=== PATIENT | male | born 1955 | race Caucasian/White ===

== ENCOUNTER 2021-02-02 08:33 | Inpatient (IN) | payer OTHER ==
[2021-02-02 09:07] LABS: Absolute Lymphocytes (CBC) 4.7 K/uL (0.7-4.9); Basophils % 1.2 % (0-1.3); Lymphocytes % 62.9 % (15.3-44.8); MPV 8.4 fL (7.6-11.3); RBC Red Blood Cell Count 3.91 M/uL (4.33-5.43)
[2021-02-02 09:10] LABS: Protime INR 1.08
[2021-02-02] MEDS ORDERED: EPINEPHrine 4 MG in NA CHLORIDE 0.9% 250 ML IV PRN (09:22)
[2021-02-02 09:29] LABS: Albumin 3.2 g/dL (3.4-5.0); Bilirubin Direct 0.1 mg/dL (0-0.2); Bilirubin Total 0.3 mg/dL (0.2-1.0); Magnesium 2.8 mg/dL (1.8-2.4); Potassium 4.3 mmol/L (3.5-5.1); Troponin (Emerg Dept Use Only) 0.45 ng/mL (0.0-0.045)
[2021-02-02 09:45] LABS: Blood Morphology Comment NOTED (NOT SEEN); Platelet Estimate ADEQ; Polychromasia SLIGHT
[2021-02-02] MEDS ORDERED: DOPAMINE/D5W 400 MG/250 ML BAG IV ONE ×5 (09:49→23:07)
[2021-02-02] MEDS ORDERED: NA CHLORIDE 0.9% 2,000 ML ONE (09:49)
--- NOTE | 2021-02-02 10:03 | RAD REPORT ---
EXAM DESCRIPTION: RAD - Chest Single View - 02/02/2021 9:49 am CLINICAL HISTORY: md arevalo Chest pain. COMPARISON: No comparisons FINDINGS: Portable technique limits examination quality. Endotracheal intubation is noted with tip at the level of the superior aortic arch. Enteric tube desc ends into the stomach. Mild to moderate bilateral pulmonary opacities are present probably representi ng pulmonary edema or pulmonary infection.Heart size is mildly prominent.
--- NOTE | 2021-02-02 10:41 | ER ---
Nurse's Notes [facility] Name: Alfonzo Chisholm Age: 65 yrs Sex: Male : 1955 Arrival Date: 02/02/2021 Time: 08:36 Bed 2 Private MD: Diagnosis: Respiratory arrest;Cardiac arrest, cause unspecified Presentation: 02/02 08:33 Chief complaint: EMS states: FOUND DOWN IN FULL ARREST. Care prior to arrival: bp Medication(s) given: EPI x3 IV initiated. LEFT TIB IO. Compressions began prior to arrival. 08:33 Method Of Arrival: EMS: [facility] bp 08:33 Acuity: NELL 1 bp 08:33 Coronavirus screen: Client presents with at least one sign or symptom that may indicate bp coronavirus-19. Provider contacted for isolation considerations. Ebola Screen: No symptoms or risks identified at this time. Initial Sepsis Screen: Does the patient meet any 2 criteria? Temp <36.0*C (96.8*F)) or > 38.3*C (100.9*F). Altered Mental Status. Does the patient have a suspected source of infection? No. Patient's initial sepsis screen is negative. Risk Assessment: Do you want to hurt yourself or someone else? Patient reports no desire to harm self or others. Onset of symptoms was February 02, 2021 at 07:30. Transition of care: patient was received from another setting of care (long-term care facility), [facility]. Triage Assessment: 08:33 General: SEE CPR SHEET. Pain: Unable to use pain scale. Patient is unresponsive. bp Historical: - Allergies: 10:31 No Known Allergies; bp - Home Meds: 10:31 Unable to obtain [Active]; bp - PMHx: 10:31 Unable to Obtain; bp - Immunization history:: Adult Immunizations unknown, UNKNOWN. - Social history:: Smoking status: unknown. Screenin:33 Abuse screen: Denies threats or abuse. Denies injuries from another. Nutritional bp screening: No deficits noted. Tuberculosis screening: No symptoms or risk factors identified. Assessment: 08:33 CPR assessment: unresponsive, pupils fixed \T\ dilated, no respiratory effort, intubated, bp Ambu ventilation, pulses present w/ compressions. Cardiac rhythm is PEA. General: Appears obese, Behavior is unresponsive. Neuro: Level of Consciousness is unresponsive, Oriented to none. EENT: No deficits noted. Cardiovascular: Rhythm is PEA. Respiratory: Airway via oral intubation Respiratory effort is NONE Respiratory pattern is NONE Ventilator assessment: ET Tube: 7.5 21cm. at gum line. Ventilator Mode: Assist Control (AC) Tidal Volume: 610 FiO2: 100%. Pressure Support: 0 HOB > 30 degrees. Breath sounds with crackles bilaterally. GI: Abdomen is obese. : No signs and/or symptoms were reported regarding the genitourinary system. Derm: No deficits noted. 08:35 Reassessment: ROSC. bp 08:45 Reassessment: PEA ON MONITOR. CPR RESTARTED. bp 08:48 Reassessment: ROSC. BGL 306. bp 10:30 Reassessment: TRANSFER INITIATED. PT ON ZEB AC16, TV 610, FIO2 100, DOPAMINE AT 10 bp MCG/KG/MIN, EPI AT 2MCG/MIN. 11:15 Reassessment: TO CT WITH RT AND MONOGRAM AND LETTER PASTER. bp 11:30 Reassessment: RETURNED FROM CT. bp 13:31 Reassessment: Checked with [facility] about transfer, Karla with the transfer aa5 center states they are still pending CCU bed. Dr. Trejo was notified of update. 15:00 Reassessment: Reassessment: EEG AT B/S. EEG GROSSLY ABNORMAL. NOTIFIED. Neuro: Level bp of Consciousness is unresponsive, Oriented to none. 16:00 Reassessment: [facility] CONTACTED. PER STAFF, PT HAS NO LIVING FAMILY AND NO CLOSE bp ASSOCIATES, 2/2 HOMELESSNESS. Neuro: Level of Consciousness is unresponsive, Oriented to none. 17:00 Reassessment: [facility] CONTACTED BY . PT DOES NOT CURRENTLY MEET CRITERIA FOR bp DONATION 2/2 PH <7.3. Vital Signs: 08:33 Weight 175 kg; bp 08:45 BP 147 / 78; Pulse 81; Resp 18; Pulse Ox 100% on 100% FiO2 ETT vent; bp 09:00 BP 98 / 55; Pulse 67; Resp 16; Pulse Ox 99% ; bp 09:15 BP 71 / 52; Pulse 68; Resp 18; Temp 95.7; Pulse Ox 98% ; bp 09:30 BP 112 / 63; Pulse 84; Resp 14; Temp 97.8; Pulse Ox 98% ; bp 09:45 BP 132 / 60; Pulse 104; Resp 12; Temp 98.2; Pulse Ox 99% ; bp 10:00 BP 120 / 55; Pulse 94; Resp 14; Temp 97.6; Pulse Ox 100% ; bp 10:15 BP 113 / 48; Pulse 82; Resp 16; Temp 97.2; Pulse Ox 99% ; bp 10:30 BP 109 / 49; Pulse 79; Resp 16; Temp 97; Pulse Ox 99% ; bp 10:45 BP 102 / 58; Pulse 76; Resp 16; Temp 96.8; Pulse Ox 98% ; bp 11:00 BP 100 / 54; Pulse 73; Resp 16; Temp 96.5; Pulse Ox 98% ; bp 11:15 BP 102 / 47; Pulse 73; Resp 10; Temp 96.5; Pulse Ox 99% ; bp 11:30 BP 75 / 46; Pulse 71; Resp 16; Temp 96.3; Pulse Ox 98% ; bp 11:45 BP 71 / 40; Pulse 71; Resp 15; Temp 96.3; Pulse Ox 98% ; bp 12:00 BP 90 / 38; Pulse 61; Resp 16; Temp 96.2; Pulse Ox 92% ; bp 12:30 BP 76 / 44; Pulse 62; Resp 16; Temp 96; Pulse Ox 100% ; bp 13:00 BP 68 / 47; Pulse 57; Resp 16; Temp 96; Pulse Ox 100% ; bp 13:30 BP 72 / 43; Pulse 56; Resp 16; Temp 96.; Pulse Ox 100% ; bp 14:00 BP 85 / 42; Pulse 55; Resp 17; Temp 96.9; Pulse Ox 100% ; bp 14:30 BP 86 / 48; Pulse 58; Resp 20; Temp 95.8; Pulse Ox 100% ; bp 15:00 BP 88 / 43; Pulse 58; Resp 21; Temp 95.8; Pulse Ox 100% ; bp 15:30 BP 89 / 59; Pulse 59; Resp 22; Temp 95.8; Pulse Ox 100% ; bp 16:00 BP 92 / 51; Pulse 61; Resp 20; Temp 95.9; Pulse Ox 100% ; bp 16:30 BP 94 / 59; Pulse 65; Resp 22; Temp 96.1; Pulse Ox 100% ; bp 17:00 BP 101 / 50; Pulse 60; Resp 21; Temp 96.5; Pulse Ox 100% ; bp 17:30 BP 116 / 72; Pulse 74; Resp 18; Temp 97.1; Pulse Ox 100% ; bp ED Course: 08:33 Patient has correct armband on for positive identification. Placed in gown. Bed in low bp position. Side rails up X2. Intubation: Ventilated with 100% bag valve mask (BVM) prior to procedure. 7.5 Fr. ETT placed orally. BY EMS ASSISTANT GUEST SERVICES MANAGER. Placement verified by CXR, auscultating bilateral breath sounds, Ventilated with Ambu bag. ventilator. 08:36 Patient arrived in ED. am2 08:40 Inserted saline lock: 18 gauge in left antecubital area, using aseptic technique. Blood dh3 collected. 09:11 Velez cath inserted, using sterile technique, 16 Fr., by sd, balloon inflated, to dh3 gravity drainage, returned clear yellow urine. Patient tolerated CPR/intubated. 09:27 Tim Trejo MD is Attending Physician. [facility] 09:34 Thee Magana PA is PHCP. [facility] 09:41 Say Bridges, RN is Primary Nurse. bp 09:48 First set of blood cultures drawn by ED staff. dh3 09:49 XRAY Chest (1 view) In Process Unspecified. EDMS 09:51 Second set of blood cultures drawn by ED staff. dh3 09:59 Lactate Sent. dh3 10:01 Triage completed. bp 10:31 Arm band placed on right wrist. bp 10:36 Notified Nurse Practitioner and/or Physician Missileman of a critical lab result(s), sv lactate-10.1. 10:57 Transfer initiated with [facility]. em1 11:45 CT Head Brain wo Cont In Process Unspecified. EDMS 14:20 Transfer declined due to capacity at [facility]. em1 14:24 Transfer initiated with [facility]. em1 14:34 Transfer declined due to capacity at [facility]. em1 17:43 Yesenia Lion MD is Hospitalizing Provider. [facility] 02/03 07:00 No provider procedures requiring assistance completed. Patient admitted, IV remains in sv place. intact. 07:18 Primary Nurse role handed off by Say Bridges, RN 07:18 Lauren, Gavi, RN is Primary Nurse. sv Administered Medications: 02/02 13:31 Discontinued: Epinephrine Drip - (EPINEPHrine (PF) 4 mg, Sodium Chloride 0.9% 250 ml) giuliano IV at calculated rate Per protocol; Start at 1 mcg/min; titrate upto 10 mcg/min to maintain SBP>90 mmHg 09:30 Drug: Dopamine drip 5 mcg/kg/min - (DOPamine 400 mg, D5W 250 ml) Route: IV; Rate: bp calculated rate; Site: right femoral; 09:30 Drug: Epinephrine Drip - (EPINEPHrine (PF) 4 mg, Sodium Chloride 0.9% 250 ml) Route: bp IV; Rate: calculated rate; Site: right femoral; 11:05 Drug: ProTONIX (pantoprazole) 40 mg Route: IVP; Site: right femoral; bp 11:15 Drug: Zosyn (piperacillin-tazobactam) 3.375 grams Route: IVPB; Infused Over: 60 mins; bp Site: right upper arm; 13:00 Drug: Levophed (norepinephrine) (4 mg/250 mL D5W 4 mcg/min Route: IV; Rate: calculated bp rate; Site: right femoral; 02/03 04:15 Drug: Everardo-Synephrine (phenylephrine) 100 mcg/min Route: IV; Rate: calculated rate; jb4 Site: right femoral; Outcome: 02/02 10:40 ER care complete, transfer ordered by . iguliano 17:44 Decision to Hospitalize by Provider. ericka 02/03 07:00 Admitted to ER Hold. Please see [facility] for further documentation. sv Instructed on the need for admit. 18:36 Patient left the ED. Signatures: Dispatcher [employer] EDMS Gavi Aguilar, RN RN Tim Narvaez MD MD cha Mickail, Joel, PA PA Kulwinder Jacome em1 Heydi Cueto, RN RN [email or web address] Cuco Soni RN RN jb4 Mariama Brown Deanna 3 Say Bridges RN RN bp Corrections: (The following items were deleted from the chart) 02/02 10:32 10:31 PMHx: Angina pectoris; bp bp
--- NOTE | 2021-02-02 10:41 | EDPHYS ---
Physician Documentation [facility] Name: Alfonzo Chisholm Age: 65 yrs Sex: Male : 1955 Arrival Date: 02/02/2021 Time: 08:36 Bed 2 Private MD: ED Physician Tim Trejo HPI: 02/02 09:45 This 65 yrs old Male presents to ER via EMS with complaints of CPR. [facility] 09:45 Preceding the arrest, the patient was found down by [facility] staff. The arrest jmm occurred at [facility]. Pre-hospital course: The arrest was not witnessed by others. EMS care prior to arrival: initiation of ACLS, peripheral IV, intubation ACLS details: Airway: oral intubation, Medications given by EMS prior to arrival -. It is unknown whether or not the patient has had similar symptoms in the past. Historical: - Allergies: 10:31 No Known Allergies; bp - Home Meds: 10:31 Unable to obtain [Active]; bp - PMHx: 10:31 Unable to Obtain; bp - Immunization history:: Adult Immunizations unknown, UNKNOWN. - Social history:: Smoking status: unknown. ROS: 09:45 Unable to obtain ROS due to comatose state. [facility] Exam: 09:45 Constitutional: The patient appears obese. [facility] 09:45 Head/face: Noted is cyanosis noted. 09:45 Eyes: Conjunctiva: normal. 09:45 Chest/axilla: cyanotic. 09:45 Cardiovascular: no palpable pulse. 09:45 Respiratory: intubated. 09:45 Abdomen/GI: Inspection: obese 09:45 Musculoskeletal/extremity: 09:45 Neuro: Orientation: unable to test, the patient is intubated, Mentation: unable to test, the patient is intubated, Memory: unable to test, the patient is intubated. 09:45 Psych: Vital Signs: 08:33 Weight 175 kg; bp 08:45 BP 147 / 78; Pulse 81; Resp 18; Pulse Ox 100% on 100% FiO2 ETT vent; bp 09:00 BP 98 / 55; Pulse 67; Resp 16; Pulse Ox 99% ; bp 09:15 BP 71 / 52; Pulse 68; Resp 18; Temp 95.7; Pulse Ox 98% ; bp 09:30 BP 112 / 63; Pulse 84; Resp 14; Temp 97.8; Pulse Ox 98% ; bp 09:45 BP 132 / 60; Pulse 104; Resp 12; Temp 98.2; Pulse Ox 99% ; bp 10:00 BP 120 / 55; Pulse 94; Resp 14; Temp 97.6; Pulse Ox 100% ; bp 10:15 BP 113 / 48; Pulse 82; Resp 16; Temp 97.2; Pulse Ox 99% ; bp 10:30 BP 109 / 49; Pulse 79; Resp 16; Temp 97; Pulse Ox 99% ; bp 10:45 BP 102 / 58; Pulse 76; Resp 16; Temp 96.8; Pulse Ox 98% ; bp 11:00 BP 100 / 54; Pulse 73; Resp 16; Temp 96.5; Pulse Ox 98% ; bp 11:15 BP 102 / 47; Pulse 73; Resp 10; Temp 96.5; Pulse Ox 99% ; bp 11:30 BP 75 / 46; Pulse 71; Resp 16; Temp 96.3; Pulse Ox 98% ; bp 11:45 BP 71 / 40; Pulse 71; Resp 15; Temp 96.3; Pulse Ox 98% ; bp 12:00 BP 90 / 38; Pulse 61; Resp 16; Temp 96.2; Pulse Ox 92% ; bp 12:30 BP 76 / 44; Pulse 62; Resp 16; Temp 96; Pulse Ox 100% ; bp 13:00 BP 68 / 47; Pulse 57; Resp 16; Temp 96; Pulse Ox 100% ; bp 13:30 BP 72 / 43; Pulse 56; Resp 16; Temp 96.; Pulse Ox 100% ; bp 14:00 BP 85 / 42; Pulse 55; Resp 17; Temp 96.9; Pulse Ox 100% ; bp 14:30 BP 86 / 48; Pulse 58; Resp 20; Temp 95.8; Pulse Ox 100% ; bp 15:00 BP 88 / 43; Pulse 58; Resp 21; Temp 95.8; Pulse Ox 100% ; bp 15:30 BP 89 / 59; Pulse 59; Resp 22; Temp 95.8; Pulse Ox 100% ; bp 16:00 BP 92 / 51; Pulse 61; Resp 20; Temp 95.9; Pulse Ox 100% ; bp 16:30 BP 94 / 59; Pulse 65; Resp 22; Temp 96.1; Pulse Ox 100% ; bp 17:00 BP 101 / 50; Pulse 60; Resp 21; Temp 96.5; Pulse Ox 100% ; bp 17:30 BP 116 / 72; Pulse 74; Resp 18; Temp 97.1; Pulse Ox 100% ; bp Procedures: 09:45 Central Line: the site was prepped with in sterile fashion, a triple lumen catheter was [facility] inserted, in the right femoral vein, in 2 attempts. placement was verified, by blood return, the site was dressed with Tegaderm, using sterile technique. MDM: 09:27 Patient medically screened. giuliano 15:47 Data reviewed: vital signs, nurses notes. Counseling: I had a detailed discussion with [facility] the patient and/or guardian regarding: the historical points, exam findings, and any diagnostic results supporting the discharge/admit diagnosis. ED course: I discussed the patient with Elizabeth Dhaliwal. Patient record number 2021 - 08 - [id number]. 17:39 Counseling: I had a detailed discussion with the patient and/or guardian regarding:. ED [facility] course: Patient remains on Levophed and dopamine drip. Patient was administered Zosyn following chest x-ray results. I discussed the patient with Dr. Maloney who will reevaluate the EEG. Patient will need further evaluation before he can be a candidate for organ donation. I discussed the patient with Dr. Lion whom accepted the patient for admission. . 02/02 08:53 Order name: Glucose, Ancillary Testing; Complete Time: 09:35 EDMS 02/02 09:00 Order name: Basic Metabolic Panel; Complete Time: 09:35 aa 02/02 09:00 Order name: CBC with Diff; Complete Time: 09:48 aa5 02/02 09:00 Order name: LFT's; Complete Time: 09:35 aa5 02/02 09:00 Order name: Magnesium; Complete Time: 09:35 aa 02/02 09:00 Order name: NT PRO-BNP; Complete Time: :35 aa 02/02 09:00 Order name: PT-INR; Complete Time: :35 02/02 09:00 Order name: Troponin (emerg Dept Use Only); Complete Time: 09:35 [facility] 02/02 09:09 Order name: Manual Differential; Complete Time: 09:48 EDMS 02/02 09:11 Order name: Blood Culture Adult (2) em1 02/02 09:12 Order name: Blood Culture EDWA 02/02 09:28 Order name: ABG; Complete Time: 16:10 em1 02/02 09:43 Order name: Lactate bp 02/02 09:43 Order name: Lactate; Complete Time: 10:34 EDMS 02/02 11:53 Order name: SARS-COV-2 RT PCR; Complete Time: 11:56 MS 02/02 15:07 Order name: Lactate Sepsis 2 HR Follow-up; Complete Time: 15:14 EDMS 02/02 16:12 Order name: ABG; Complete Time: 02:13 m 02/02 19:30 Order name: Comprehensive Metabolic Panel EDMS 02/02 19:30 Order name: Comprehensive Metabolic Panel; Complete Time: 15:09 [facility] 02/02 19:31 Order name: CBC with Automated Diff EDMS 02/02 19:31 Order name: CBC with Automated Diff; Complete Time: 15:09 MS 02/02 19:31 Order name: Magnesium EDWA 02/02 19:31 Order name: Magnesium; Complete Time: 15:09 MS 02/02 19:31 Order name: NT PRO-BNP [facility] 02/02 19:31 Order name: NT PRO-BNP; Complete Time: 15:09 MS 02/02 19:31 Order name: Phosphorus EDWA 02/02 19:31 Order name: Phosphorus; Complete Time: 15:09 MS 02/02 19:31 Order name: ABG Arterial Blood Gas [facility] 02/02 09:00 Order name: XRAY Chest (1 view); Complete Time: 10:07 [facility] 02/02 09:00 Order name: EKG; Complete Time: 09:01 5 02/02 09:00 Order name: Cardiac monitoring; Complete Time: 09:31 [facility] 02/02 09:00 Order name: EKG - Nurse/Tech; Complete Time: 09:31 [facility] 02/02 11:03 Order name: CT Head Brain wo Cont; Complete Time: 11:56 [facility] 02/02 14:00 Order name: EEG Request [facility] 02/02 19:31 Order name: Tube Feeding EDWA 02/02 19:31 Order name: Echo with Doppler EDWA 02/02 19:31 Order name: Echo with Doppler EDWA 02/02 19:31 Order name: EEG Request EDMS 02/02 19:31 Order name: EEG Request EDMS 02/02 19:31 Order name: ABG Arterial Blood Gas EDMS 02/02 19:31 Order name: Extrem Venous W Compress Samson EDMS 02/02 19:31 Order name: Extrem Venous W Compress Samson; Complete Time: 15:09 EDMS 02/02 19:32 Order name: CONS Physician Consult EDWA 02/02 21:43 Order name: CBC with Automated Diff; Complete Time: 02:13 EDMS 02/02 22:18 Order name: Manual Differential; Complete Time: 02:13 EDMS 02/02 22:37 Order name: Type and Screen; Complete Time: 02:13 EDMS 02/02 23:13 Order name: ABO/RH no charge; Complete Time: 02: EDMS 02/03 02:44 Order name: Glucose, Ancillary Testing; Complete Time: 15:09 EDMS 02/03 04:24 Order name: ABG Arterial Blood Gas; Complete Time: 15:09 EDMS 02/03 06:46 Order name: Protime (+INR); Complete Time: 15:09 EDMS 02/03 06:46 Order name: PTT, Activated Partial Thromb; Complete Time: 15:09 EDMS 02/03 07:07 Order name: NT PRO-BNP; Complete Time: 15:09 EDMS 02/03 07:24 Order name: Procalcitonin; Complete Time: 15:09 EDMS 02/03 12:04 Order name: Troponin I; Complete Time: 15:09 EDMS 02/02 09:00 Order name: IV Saline Lock; Complete Time: 09:32 aa5 02/02 09:00 Order name: Labs collected and sent; Complete Time: 09:41 aa5 02/02 09:00 Order name: O2 Per Protocol; Complete Time: 09:32 aa5 02/02 09:00 Order name: O2 Sat Monitoring; Complete Time: :32 aa5 Administered Medications: 13:31 Discontinued: Epinephrine Drip - (EPINEPHrine (PF) 4 mg, Sodium Chloride 0.9% 250 ml) giuliano IV at calculated rate Per protocol; Start at 1 mcg/min; titrate upto 10 mcg/min to maintain SBP>90 mmHg 09:30 Drug: Dopamine drip 5 mcg/kg/min - (DOPamine 400 mg, D5W 250 ml) Route: IV; Rate: bp calculated rate; Site: right femoral; 09:30 Drug: Epinephrine Drip - (EPINEPHrine (PF) 4 mg, Sodium Chloride 0.9% 250 ml) Route: bp IV; Rate: calculated rate; Site: right femoral; 11:05 Drug: ProTONIX (pantoprazole) 40 mg Route: IVP; Site: right femoral; bp 11:15 Drug: Zosyn (piperacillin-tazobactam) 3.375 grams Route: IVPB; Infused Over: 60 mins; bp Site: right upper arm; 13:00 Drug: Levophed (norepinephrine) (4 mg/250 mL D5W 4 mcg/min Route: IV; Rate: calculated bp rate; Site: right femoral; 02/03 04:15 Drug: Everardo-Synephrine (phenylephrine) 100 mcg/min Route: IV; Rate: calculated rate; jb4 Site: right femoral; Disposition Summary: 02/02/21 17:44 Hospitalization Ordered Hospitalization Status: Inpatient Admission [facility] Provider: Yesenia Lion Condition: Stable(02/02/21 17:44) jmm Problem: new(02/02/21 17:44) jmm Symptoms: are unchanged(02/02/21 17:44) [facility] Bed/Room Type: Standard [facility] Location: [facility] ER HOLD(02/02/21 19:44) Room Assignment: ERHOLD-(02/02/21 19:44) Diagnosis - Respiratory arrest jmm - Cardiac arrest, cause unspecified [facility] Forms: - Medication Reconciliation Form jmm - SBAR form [facility] Addendum: 02/05/2021 08:30 Co-signature as Attending Physician, Tim Trejo MD I agree with the assessment and c lambert plan of care. Signatures: Dispatcher [employer] EDMary Beth Gibbs RN Tim Ragland MD MD cha Mickail, Joel, PA PA jmm Floyd Villa MD MD rn Calderon, Audri, RN RN aa5 Cuco Soni RN RN jb4 Say Bridges RN RN bp Corrections: (The following items were deleted from the chart) 02/02 10:32 10:31 PMHx: Angina pectoris; bp bp 10:54 09:49 CORONAVIRUS+MR.LAB.BRZ ordered. EDWA EDMS 14:46 10:40 icu giuliano [facility] 14:46 10:40 Other Acute Care Facility giuliano [facility] 14:46 10:40 Higher level of care [facility] 14:46 10:40 Serious giuliano [facility] 14:46 10:40 [facility] 14:46 10:40 have improved giuliano [facility] 14:46 10:40 Acute respiratory failure giuliano [facility] 14:46 10:40 Cardiac arrest due to other underlying condition - respiratory failure [facility] 14:46 10:40 Morbid (severe) obesity with alveolar hypoventilation [facility] 14:46 10:40 Hypotension, unspecified [facility] 19:44 17:44 Telemetry/MedSurg (Inpatient) [facility] dw 19:44 17:44 [facility] dw
[2021-02-02] MEDS ORDERED: PANTOPRAZOLE 40 MG INJ ONE ×2 (11:36→23:06)
[2021-02-02] MEDS ORDERED: PIPER/TAZO/NS 3.375gm 3.375 GM/100 ML BAG ONE (11:36)
[2021-02-02] MEDS ORDERED: PIPERACIL/TAZO 3.375 GM VIAL IV ONE (11:37)
[2021-02-02] MEDS ORDERED: NA CHLORIDE 0.9% 100 ML ONE (11:37)
--- NOTE | 2021-02-02 11:53 | RAD REPORT ---
EXAM DESCRIPTION: CT - Head Brain Wo Cont - 02/02/2021 11:45 am CLINICAL HISTORY: ams Headache, drowsiness COMPARISON: No comparisons TECHNIQUE: All CT scans are performed using dose optimization technique as appropriate and may inclu de automated exposure control or mA/KV adjustment according to patient size. FINDINGS: No intracranial hemorrhage, hydrocephalus or extra-axial fluid collection.No areas of brai n edema or evidence of midline shift. Nasopharyngeal soft tissues are prominent along prominence of the posterior nasal cavity soft tissues . The calvarium is intact. IMPRESSION: No acute intracranial abnormality.
[2021-02-02] MEDS ORDERED: NOREPINEPHRINE 4mg/D5W 250mL 4 MG/250 ML BAG IV ONE ×3 (13:40→21:44)
[2021-02-02 13:47] LABS: Arterial Blood Carboxyhemoglob 0.9 % (0-1.5); Blood Gas Oxyhemoglobin 94.4 % (94-97); Blood O2 Saturation 96.3 % (92-98.5)
[2021-02-02 17:16] LABS: Arterial Blood Carboxyhemoglob 0.8 % (0-1.5); Blood Gas Oxyhemoglobin 97.2 % (94-97)
--- NOTE | 2021-02-02 18:37 | P.HP ---
Certification for Inpatient Patient admitted to: Inpatient With expected LOS: >2 Midnights Patient will require the following post-hospital care: None Practitioner: I am a practitioner with admitting privileges, knowledge of patient current condition, hospital course, and medical plan of care. Services: Services provided to patient in accordance with Admission requirements found in Title 42 Section 412.3 of the Code of Federal Regulations Patient History Date of Service: 02/02/21 Reason for admission: Cardiac arrest History of Present Illness: Patient is a 65-year-old gentlemen who he presents to our hospital with cardiac arrest. Patient is a resident at [facility]. Patient was apparently picked up from a homeless [place] [facility] in the [facility] and was transfer to [facility]. Patient was walking to the shower when patient fell. It appeared patient was unresponsive and did not have a pulse so they started CPR and EMS was notified. When EMS arrived patient was asystole and CPR was continued. Patient was given epi x 3 and intraosseous catheter obtained in the tibia. Patient was brought to our hospital were there were able to obtain a pulse. Patient was hypotensive and was started on Levophed and also given dopamine. Transfer was initiated to [facility] but no bed availability. At the same time EEG was performed which appear to have very little activity. Initially it was felt that patient may not have any brain activity but when seen by Neurology patient had a burst suppression pattern. Patient unlikely to survive this event. Most likely will not have much brain activity over the next 48-72 hr. Will go ahead and continue with hydration and pressor support. Start Protonix drip. Get Cardiology and Pulmonary consultation along with a neurology consultation. As patient's prognosis is poor and hemodynamically and neurologically unstable for transfer will go ahead and keep him at our facility for admission and repeat EEG in the a.m.. I did speak to the supervisor public health nursing, and they stated that the only information they have on the patient is his Medicare and Medicaid and number. They do not have a peg driver's license nor do they have any contact information that is working. They had a number to an Lukasz Connell but the phone number that we were given is not working. Will get foster care social worker to assist and try to figure out a contact to the patient. Allergies No Known Allergies Allergy (Unverified 02/02/21 09:22) - Past Medical/Surgical History -: Unknown -: Unknown - Family History Father Family History: Reviewed- Non-Contributory - Social History Smoking Status: Unknown if ever smoked Smoking therapy provided: No Patient receptive to therapy: No Alcohol use: No CD- Drugs: No Caffeine use: No Review of Systems is unable to be obtained Physical Examination - Vital Signs Temperature: 98 F Blood Pressure: 100/60 Pulse: 60 Respirations: 18 Pulse Ox (%): 95 - Physical Exam General: Other (intubated and ) HEENT: Atraumatic, Normocephalic Neck: Supple, 2+ carotid pulse no bruit, JVD not distended Respiratory: Diminished Cardiovascular: Regular rate/rhythm, Normal S1 S2, Systolic murmur Gastrointestinal: Normal bowel sounds, Soft and benign, Non-distended Musculoskeletal: No clubbing, No swelling, No contractures Integumentary: No rashes Neurological: Other - Studies Laboratory Data (last 24 hrs) 02/02/21 09:00: PT 12.4, INR 1.08 02/02/21 09:00: WBC 7.50, Hgb 12.0 L, Hct 40.0, Plt Count 235 02/02/21 09:00: Sodium 137, Potassium 4.3, BUN 17, Creatinine 1.48 H, Glucose 321 H, Magnesium 2.8 H, Total Bilirubin 0.3, AST 281 H, ALT 337 H*, Alkaline Phosphatase 66 Assessment & Plan - Problems (Diagnosis) (1) Cardiac arrest Status: Acute (2) GIB (gastrointestinal bleeding) Status: Acute (3) ISRRAEL (acute kidney injury) Status: Acute - Plan Plan: 1. Patient with very little brain activity. Patient had a burst suppression pattern noted by neurology. At this time, patient is a full code and will continue to do whatever we can. Repeat EEG in the morning. Continue with vasopressor support. Continuous sedation as needed. Continue antibiotic therapy. Discharge Plan: Other Plan to discharge in: Greater than 2 days - Advance Directives Does patient have a Living Will: No Does patient have a Durable POA for Healthcare: No Critical Care: Yes Time Spent Managing PTS Care (In Minutes): 60
[2021-02-02] MEDS ORDERED: ONDANSETRON 4 MG/2 ML VIAL IV PRN (19:22)
[2021-02-02] MEDS ORDERED: ACETAMINOPHEN 500 MG TAB PO PRN (19:22)
[2021-02-02] MEDS ORDERED: NA CHLORIDE 0.9% 500 ML IV ONE (19:31)
[2021-02-02] MEDS ORDERED: PANTOPRAZOLE INJ 80 MG in NA CHLORIDE 0.9% 250 ML IV SCH (20:00)
[2021-02-02] MEDS ORDERED: NA CHLORIDE 0.9% 1,000 ML IV SCH ×2 (20:00)
[2021-02-02] MEDS ORDERED: D5W 1,000 ML with NA BICARB 8.4% 50 MEQ IV SCH ×2 (20:00)
[2021-02-02] MEDS ORDERED: Levofloxacin500mg IV 500 MG/100 ML BAG IV SCH (20:00)
[2021-02-02 21:31] LABS: Absolute Lymphocytes (CBC) 0.6 K/uL (0.7-4.9); Basophils % 0.1 % (0-1.3); Lymphocytes % 2.6 % (15.3-44.8); RBC Red Blood Cell Count 4.51 M/uL (4.33-5.43)
[2021-02-02 22:15] LABS: Blood Morphology Comment NOT SEEN (NOT SEEN); Platelet Estimate ADEQ
[2021-02-02] MEDS ORDERED: NOREPINEPHRINE 4 MG in D5W 250 ML IV PRN (22:43)
[2021-02-02] MEDS ORDERED: DOPAMINE/D5W 400 MG/250 ML BAG IV PRN (22:45)
[2021-02-02] MEDS ORDERED: Levofloxacin500mg IV 500 MG/100 ML BAG IV ONE (23:06)
[2021-02-02] MEDS ORDERED: NA CHLORIDE 0.9% 250 ML ONE (23:06)
[2021-02-02] MEDS ORDERED: ACETAMINOPHEN 500 MG TAB ONE (23:06)
[2021-02-02] MEDS ORDERED: SODIUM BICARB 50 MEQ/50ML VIAL ONE (23:07)
[2021-02-02] MEDS ORDERED: NA CHLORIDE 0.9% 500 ML ONE (23:07)
[2021-02-02] MEDS ORDERED: D5W 1,000 ML IV ONE (23:07)
[2021-02-03] MEDS ORDERED: ACETAMINOPHEN 650MG/RECT SUPP PR ONE ×4 (00:01→07:59)
[2021-02-03] MEDS ORDERED: NOREPINEPHRINE 4mg/D5W 250mL 4 MG/250 ML BAG IV ONE ×3 (00:13→03:56)
[2021-02-03] MEDS ORDERED: DOPAMINE/D5W 400 MG/250 ML BAG IV ONE ×4 (00:54→03:16)
[2021-02-03] MEDS: PIPER/TAZO/NS 3.375gm 3.375 GM/100 ML BAG IVPB SCH ×2 (02:35→08:15)
[2021-02-03] MEDS ORDERED: HYDROCORTISONE SUC 100 MG INJ ONE (02:42)
[2021-02-03] MEDS ORDERED: PIPER/TAZO/NS 3.375gm 3.375 GM/100 ML BAG ONE ×2 (03:02→07:59)
[2021-02-03] MEDS ORDERED: NOREPINEPHRINE 4 MG/4 ML VIAL ONE ×2 (03:16→07:12)
[2021-02-03] MEDS ORDERED: D5W 250 ML IV ONE ×3 (03:16→07:12)
[2021-02-03] MEDS ORDERED: Phenylephrine HCl 10 MG/ML 1 ML VIAL ONE ×2 (03:44→03:47)
[2021-02-03] MEDS ORDERED: ACETAMINOPHEN 650MG/RECT SUPP PR PRN (04:03)
[2021-02-03 04:22] LABS: Arterial Blood Carboxyhemoglob 0.6 % (0-1.5); Blood Gas Oxyhemoglobin 95.1 % (94-97); Blood O2 Saturation 96.9 % (92-98.5)
[2021-02-03 05:28] VITALS: BMI 61.3
[2021-02-03] MEDS ORDERED: AMIODARONE HCL 150 MG in D5W 100 ML IV STA (06:40)
[2021-02-03 06:42] LABS: Protime INR 1.17
[2021-02-03 06:49] LABS: Absolute Lymphocytes (CBC) 1.2 K/uL (0.7-4.9); Basophils % 0.2 % (0-1.3); Hematocrit 39.8 % (39.6-49.0); Lymphocytes % 5.5 % (15.3-44.8); MPV 8.2 fL (7.6-11.3); RBC Red Blood Cell Count 4.17 M/uL (4.33-5.43)
[2021-02-03] MEDS ORDERED: AMIODARONE HCL 900 MG in Dextrose 5%-Water 482 ML IV SCH (06:50)
[2021-02-03] MEDS ORDERED: NA CHLORIDE 0.9% 1,000 ML IV ONE (06:50)
[2021-02-03 07:06] LABS: Albumin 3.1 g/dL (3.4-5.0); Bilirubin Total 0.6 mg/dL (0.2-1.0); Magnesium 1.8 mg/dL (1.8-2.4); Phosphorus 7.3 mg/dL (2.5-4.9); Protein, Total 7.4 g/dL (6.4-8.2)
[2021-02-03] MEDS ORDERED: AMIODARONE HCL 150 MG/3 ML INJ IV ONE (07:06)
[2021-02-03 07:10] LABS: Potassium 5.8 mmol/L (3.5-5.1)
--- NOTE | 2021-02-03 07:12 | RAD REPORT ---
EXAM DESCRIPTION: US - Extrem Venous W Compress Samson - 02/03/2021 3:08 am CLINICAL HISTORY: PE/DVT COMPARISON: None. TECHNIQUE: Real-time sonographic evaluation of the bilateral lower extremity deep venous systems was performed. FINDINGS: Normal compressibility, flow augmentation, phasic flow and spontaneous flow is identified in both the left and right lower extremity deep venous systems. No intraluminal filling defects seen. IMPRESSION: No DVT in either lower extremity.
[2021-02-03] MEDS ORDERED: Caclcium Chloride 10% INJ SYR IV ONE (07:29)
[2021-02-03] MEDS ORDERED: D50W 25 GM/50 ML SYRINGE IV ONE (07:29)
[2021-02-03] MEDS ORDERED: EPINEPHRINE IV PRN (07:30)
[2021-02-03] MEDS ORDERED: NA CHLORIDE 0.9% IV PRN (07:30)
[2021-02-03] MEDS ORDERED: ENOXAPARIN 40 MG/0.4 ML SQ ONE (07:59)
[2021-02-03] MEDS ORDERED: PANTOPRAZOLE INJ 80 MG in NA CHLORIDE 0.9% 250 ML IV SCH (08:00)
[2021-02-03] MEDS: NOREPINEPHRINE 8 MG in D5W 250 ML IV PRN ×2 (08:15→11:08)
[2021-02-03] MEDS ORDERED: D5W 1,000 ML with NA BICARB 8.4% 50 MEQ IV SCH ×2 (08:30)
--- NOTE | 2021-02-03 08:37 | EEG ---
CHART: [id number] TEST ID#: [id number] DATE OF STUDY: 02/02/2021 THE EEG WAS RECORDED PORTABLE IN THER EMERGENCY ROOM ON A 17 CHANNEL MACHINE. ELECTRODES WERE APPLIED IN THE USUAL MANNER USING THE INTERNATIONAL 10-20 SYSTEM. THE EEG CONSISTS OF A SUPPRESSION-BURST BACKGROUND WITH EPISODES OF NO CEREBRAL ACTIVITY LASTING 10 TO 40 SECONDS SEPERATED BY 1-2 SECONDS OF DIFFUSELY EXPRESSED MODERATE VOLTAGE SHARP WAVES. THE EEG IS NON-REACTIVE. HYPERVENTILATION WAS NOT PERFORMED. PHOTIC STIMULATION WAS NOT PERFORMED. IMPRESSION: THIS IS A SEVERELY ABNORMAL EEG DUE TO A SUPPRESSION-BURST NON-REACTIVE BACKGROUND. IN THE ABSENCE OF DEEP SEDATING MEDICATIONS OR SEVERE HYPOTHERMIA, THIS PATTERN INDICATES NO PROGNOSIS FOR RECOVERY.
[2021-02-03] MEDS ORDERED: ENOXAPARIN 40 MG/0.4 ML SQ SCH (09:00)
--- NOTE | 2021-02-03 11:52 | ECHO ---
HEIGHT: 5 ft 8 in WEIGHT: 403 lb 7.2 oz DATE OF STUDY: 02/03/[address]: Yesenia Lion MD 2-DIMENSIONAL: YES M.MODE: YES DOPPLER: YES COLOR FLOW: YES TDS: PORTABLE: DEFINITY: BUBBLE STUDY: DIAGNOSIS: CONGESTIVE HEART FAILURE CARDIAC HISTORY: CATHERIZATION: SURGERY: PROSTHETIC VALVE: PACEMAKER: MEASUREMENTS (cm) DIASTOLIC (NORMALS) SYSTOLIC (NORMALS) IVSd 1.2 (0.6-1.2) LA Diam 3.6 (1.9-4.0) LVEF 69% LVIDd 4.5 (3.5-5.7) LVIDs 2.8 (2.0-3.5) %FS 39% LVPWd 1.2 (0.6-1.2) Ao Diam 2.7 (2.0-3.7) 2 DIMENSIONAL ASSESSMENT: RIGHT ATRIUM: LEFT ATRIUM: RIGHT VENTRICLE: LEFT VENTRICLE: TRICUSPID VALVE: MITRAL VALVE: PULMONIC VALVE: AORTIC VALVE: PERICARDIAL EFFUSION: AORTIC ROOT: LEFT VENTRICULAR WALL MOTION: DOPPLER/COLOR FLOW: COMMENTS: VERY LIMITED WINDOWS. LEFT VENTRICULAR EJECTION FRACTION APPEARS NORMAL 55-60%. TECHNOLOGIST: MITRA AGUILA
--- NOTE | 2021-02-03 12:11 | EEG ---
CHART: [id number] TEST ID#: [id number] DATE OF STUDY: 02/03/2021 THE EEG WAS RECORDED PORTABLE IN THE EMERGENCY ROOM ON A 17 CHANNEL MACHINE. ELECTRODES WERE APPLIED IN THE USUAL MANNER USING THE INTERNATIONAL 10-20 SYSTEM. THERE IS NO ACTIVITY OF ELECTO CEREBRAL ORIGON DURING THE ENTIRE STUDY. NO ELECTROGRAPHIC ACTIVITY OCCURED OTHER THAN ARTIFACT DURING NOXIOUS STIMULATION. IMPRESSION: THIS IS A SEVERELY ABNORMAL EEG DUE TO THE ABSENCE OF ELECTROGRAPHIC ACTIVITY OF CEREBRAL ORIGIN. IN THE ABSENCE OF SEVERE HYPOTHERMIA OR DEEP SEDATING MEDICATIONS, THIS EEG DEMONSTRATES BRAIN .
[2021-02-03] MEDS ORDERED: EPINEPHrine 1 MG/10 ML SYR IV ONE (12:18)
[2021-02-03] MEDS ORDERED: SODIUM BICARB 50 MEQ/50ML VIAL IV ONE (12:18)
[2021-02-03] MEDS ORDERED: NOREPINEPHRINE 16 MG in Dextrose 5%-Water 500 ML IV PRN (12:57)
--- NOTE | 2021-02-03 18:40 | RAD REPORT ---
EXAM DESCRIPTION: RAD - Chest Single View - 02/03/2021 5:16 am CLINICAL HISTORY: The patient is 65 years old and is Male; Hypoxia TECHNIQUE: Frontal view of the chest. COMPARISON: No relevant prior studies available. FINDINGS: Lungs: Scattered interstitial and airspace opacities bilaterally. Pleural space: Unremarkable. No pneumothorax. Heart: Unremarkable. Mediastinum: Unremarkable. Bones/joints: Unremarkable. Tubes, lines and devices: Endotracheal tube with tip 4 cm above the libia. Nasogastric tube with tip overlying the upper chest. IMPRESSION: 1. Scattered interstitial and airspace opacities bilaterally. 2. Endotracheal tube with tip 4 cm above the libia. 3. Nasogastric tube with tip overlying the upper chest. Electronically signed by: Glen Sanchez MD 02/03/2021 5:36 AM CDT Due to temporary technical issues with the PACS/Fluency reporting system, reports are being signed by the in house radiologist without review as a courtesy to ensure prompt reporting. The interpreting r adiologist is fully responsible for the content of the report.
[2021-02-03 19:31] VITALS: O2SAT 95
[2021-02-07 06:29] VITALS: BP 100/60; TEMP 98
--- NOTE | 2021-02-07 06:33 | P.DS ---
Discharge Date: 02/03/21 Disposition: Discharge Condition: GOOD Reason for Admission: Cardiac arrest - Problems (1) Cardiac arrest Status: Acute (2) GIB (gastrointestinal bleeding) Status: Acute (3) ISRRAEL (acute kidney injury) Status: Acute Brief History of Present Illness: Patient is a 65-year-old gentlemen who he presents to our hospital with cardiac arrest. Patient is a resident at [facility]. Patient was apparently picked up from a homeless [facility]dc in the [facility] and was transfer to [facility]. Patient was walking to the shower when patient fell. It appeared patient was unresponsive and did not have a pulse so they started CPR and EMS was notified. When EMS arrived patient was asystole and CPR was continued. Patient was given epi x 3 and intraosseous catheter obtained in the tibia. Patient was brought to our hospital were there were able to obtain a pulse. Patient was hypotensive and was started on Levophed and also given dopamine. Transfer was initiated to [facility] but no bed availability. At the same time EEG was performed which appear to have very little activity. Initially it was felt that patient may not have any brain activity but when seen by Neurology patient had a burst suppression pattern. Patient unlikely to survive this event. Most likely will not have much brain activity over the next 48-72 hr. Will go ahead and continue with hydration and pressor support. Start Protonix drip. Get Cardiology and Pulmonary consultation along with a neurology consultation. As patient's prognosis is poor and hemodynamically and neurologically unstable for transfer will go ahead and keep him at our facility for admission and repeat EEG in the a.m.. I did speak to the nursing services manager, and they stated that the only information they have on the patient is his Medicare and Medicaid and number. They do not have a roll off driver's license nor do they have any contact information that is working. They had a number to an Lukasz Connell but the phone number that we were given is not working. Will get renal social worker to assist and try to fi gure out a contact to the patient. Hospital Course: Patient had multiple episodes of Ventricular tachyarrhythmia. Patient was cardioverted numerous times. Patient was given calcium, bicarb, and aggressive IV hydration. Patient's EEG revealed brain . Decision was made to withdraw care. Patient had no family around. Physician Discharge Instructions: Patient and body sent to home Followup: NONE,NONE [Primary Care Provider] - Time spent managing pt's care (in minutes): 35
== END 2021-02-03 18:37 | disposition expired | DRG 871 ==
LOC: ER 08:33 → ERHOLD 19:32
PROVIDERS: ADMIT Hospitalist; ATTEND Hospitalist
PROC: 5A1935Z Respiratory Ventilation, Less than 24 Consecutive Hours (ICD-10-PCS; principal; 2021-02-02)
PROC: 0BH17EZ Insertion of Endotracheal Airway into Trachea, Via Natural or Artificial Opening (ICD-10-PCS; 2021-02-02)
PROC: 06HY33Z Insertion of Infusion Device into Lower Vein, Percutaneous Approach (ICD-10-PCS; 2021-02-02)
DX: A41.9 Sepsis, unspecified organism (principal); J69.0 Pneumonitis due to inhalation of food and vomit; K92.2 Gastrointestinal hemorrhage, unspecified; N17.9 Acute kidney failure, unspecified; Z68.44 Body mass index [BMI] 60.0-69.9, adult; I47.2 Ventricular tachycardia; I46.9 Cardiac arrest, cause unspecified; Z20.822 Contact with and (suspected) exposure to COVID-19; E66.01 Morbid (severe) obesity due to excess calories
CPT/HCPCS: 31500; 36415; 51702; 70450; 71045; 80048; 80053; 80076; 82805; 82947; 83605; 83735; 83880; 84100; 84145; 84484; 85025; 85610; 85730; 86850; 86900; 86901; 87040; 87205; 92950; 93005; 93306; 93970; 94002; 94003; 95816; 99291; 99292; C9113; J0171; J0282; J1265; J1650; J1720; J2370; J2543; J7030; J7040; J7050; J7060; U0003